=== PATIENT | female | born 1975 | race Caucasian/White ===

== ENCOUNTER 2018-08-27 16:38 | Inpatient (IN) | payer MEDICAID, MEDICARE ==
[~2018-08-27] VITALS: Ht 157.5 cm; Wt 56.8 kg
[~2018-08-27 16:38] MED LIST: AMPH30TA3 PO; TOPI50TA PO
[2018-08-27 18:01] LABS: BASOPHILS % (AUTO) 0.7 % (0.0-2.0); EOSINOPHILS % (AUTO) 1.8 % (1.0-6.0); HEMATOCRIT 39.8 % (36-46); HEMOGLOBIN 13.6 g/dL (12.0-16.0); LYMPHOCYTES # (AUTO) 1.5 K/uL (1.0-4.8); LYMPHOCYTES % (AUTO) 27.1 % (22.0-44.0); MEAN CORPUSCULAR HEMOGLOBIN 28.1 pg (26.0-34.0); MEAN CORPUSCULAR HGB CONC 34.1 G/dL (31.0-37.0); MEAN CORPUSCULAR VOLUME 82 fL (80-100); MONOCYTES # (AUTO) 0.5 K/uL (0.1-1.0); MONOCYTES % (AUTO) 8.9 % (2.0-9.0); NEUTROPHILS # (AUTO) 3.4 K/uL (1.8-7.7); NEUTROPHILS % (AUTO) 61.5 % (40.0-70.0); PLATELET COUNT (AUTO) 266 K/uL (150-450); RED BLOOD CELL COUNT(AUTO) 4.84 MIL/uL (4.00-5.20); RED CELL DISTRIBUTION WIDTH 13.8 % (11.5-14.5)
[2018-08-27 18:04] LABS: ANION GAP 8 mmol/L (8-16); CALCIUM, TOTAL 9.1 mg/dL (8.8-10.5); CARBON DIOXIDE 28 mmol/L (22-29); CHLORIDE 100 mmol/L (98-107); CREATININE 0.66 mg/dL (0.60-1.30); GLOMERULAR FILTR. RATE CALC > 60 mL/min (>60); GLUCOSE,RANDOM 96 mg/dL (70-110); POTASSIUM 4.2 mmol/L (3.5-5.1); SODIUM SERUM 136 mmol/L (136-145); UREA NITROGEN, BLOOD 8 mg/dL (7-18)
[2018-08-27 18:19] LABS: ALANINE AMINOTRANSFERASE 21 U/L (12-78); ALBUMIN 3.9 g/dL (3.4-5.0); ALKALINE PHOSPHATASE 62 U/L (46-116); ASPARTATE AMINOTRANSFERASE 20 U/L (15-37); BILIRUBIN,TOTAL 0.3 mg/dL (0.1-1.0); HCG,QUANTITATIVE < 1 mIU/mL (0-6); THYROID STIMULATING HORMONE 2.22 uIU/mL (0.36-3.74); TOTAL PROTEIN, SERUM 6.8 g/dL (6.4-8.2)
[2018-08-27 18:44] LABS: APPEARANCE,URINE CLEAR (CLEAR); BILIRUBIN,URINE NEGATIVE (NEGATIVE); GLUCOSE, URINE (UA) NEGATIVE (NEGATIVE); KETONES,URINE NEGATIVE (NEGATIVE); LEUKOCYTE ESTERASE ,URINE TRACE (NEGATIVE); NITRATE,URINE NEGATIVE (NEGATIVE); OCCULT BLOOD,URINE LARGE (NEGATIVE); PH,URINE 8.5 (5.0-8.0); PROTEIN,URINE TRACE (NEGATIVE); UROBILINOGEN,URINE 0.2 mg/dL (<=1.0)
[2018-08-27 18:54] LABS: BACTERIA,URINE Few /HPF (None Seen); RBC,URINE 51-100 /HPF (0-2); SQUAMOUS EPITHELIAL CELL,UR Moderate /LPF (None Seen)
[2018-08-27 18:56] LABS: AMPHET/METH SCREEN,URINE NEGATIVE (NEGATIVE); BARBITURATE SCREEN, URINE NEGATIVE (NEGATIVE); BENZODIAZEPINES SCREEN,URINE NEGATIVE (NEGATIVE); CANNABINOID SCREEN,URINE NEGATIVE (NEGATIVE); COCAINE SCREEN,URINE NEGATIVE (NEGATIVE); METHADONE SCREEN, URINE NEGATIVE (NEGATIVE); OPIATE SCREEN,URINE NEGATIVE (NEGATIVE); PHENCYCLIDINE SCREEN,URINE NEGATIVE (NEGATIVE)
[2018-08-27] MEDS ORDERED: ZOLPIDEM TARTRATE 10 MG TABLET PO PRN (23:45)
[2018-08-28] MEDS: LORazepam 2 MG TABLET PO PRN ×3 (00:20→18:00)
[2018-08-28 01:10] VITALS: BP 140/91
[2018-08-28 06:48] LABS: CHOL/HDL RATIO 2.5 (3.9-5.7)
[2018-08-28] MEDS ORDERED: PETROLATUM,WHITE 71 GM JELLY TP PRN (07:00)
[2018-08-28] MEDS ORDERED: ONDANSETRON HCL 4 MG TABLET PO PRN (07:00)
[2018-08-28] MEDS ORDERED: MAGNESIUM HYDROXIDE SUSPENSION 30 ML UDCUP PO PRN (07:00)
[2018-08-28] MEDS ORDERED: ACETAMINOPHEN 325 MG TABLET PO PRN (07:00)
[2018-08-28] MEDS ORDERED: GuaiFENesin/D-METHORPHAN [SUGAR-FREE] 200-20MG/10 ML SYRUP UDCUP PO PRN (07:00)
[2018-08-28] MEDS ORDERED: MAG HYDROX/AL HYDROX/SIMETH ES 30 ML SUSPENSION UDCUP PO PRN (07:00)
[2018-08-28] MEDS ORDERED: DOCUSATE SODIUM 100 MG CAPSULE PO PRN (07:00)
[2018-08-28] MEDS ORDERED: IBUPROFEN 400 MG TABLET PO PRN (07:00)
[2018-08-28] MEDS ORDERED: LOPERAMIDE HCL 2 MG CAPSULE PO PRN (07:00)
[2018-08-28] MEDS ORDERED: ALBUTEROL SULFATE HFA 90 MCG/PUFF 8 GM INHALER IH PRN (07:00)
[2018-08-28] MEDS ORDERED: CloNIDine HCL 0.1 MG TABLET PO PRN (07:00)
[2018-08-28 09:31] VITALS: BP 133/80
[2018-08-28 18:01] VITALS: BP 138/73
[2018-08-29 06:20] LABS: HEMOGLOBIN A1C 5.3 % (4.5-6.2)
[2018-08-29 07:43] LABS: CHOL/HDL RATIO 2.9 (3.9-5.7); THYROID STIMULATING HORMONE 1.39 uIU/mL (0.36-3.74)
[2018-08-29 08:05] VITALS: BP 140/95
[2018-08-29] MEDS: LORazepam 2 MG TABLET PO PRN ×3 (08:38→19:30)
[2018-08-29] MEDS: ESCITALOPRAM OXALATE 10 MG TABLET PO SCH (09:00)
[2018-08-29] MEDS: ARIPiprazole 5 MG TABLET PO SCH ×2 (12:45→14:17)
[2018-08-29] MEDS: HALOPERIDOL 5 MG TABLET PO PRN (14:17)
[2018-08-29 16:00] VITALS: BP 106/69
[2018-08-30 04:45] VITALS: BP 142/96
[2018-08-30 08:40] VITALS: BP 132/83
[2018-08-30] MEDS: ARIPiprazole 5 MG TABLET PO SCH (09:26)
[2018-08-30] MEDS: ESCITALOPRAM OXALATE 10 MG TABLET PO SCH (09:27)
[2018-08-30] MEDS: LORazepam 2 MG TABLET PO PRN ×2 (10:56→20:46)
[2018-08-30 17:04] VITALS: BP 140/89
[2018-08-31 08:05] VITALS: BP 128/79
[2018-08-31] MEDS: LORazepam 2 MG TABLET PO PRN ×2 (08:29→21:03)
[2018-08-31] MEDS: ARIPiprazole 5 MG TABLET PO SCH (08:29)
[2018-08-31] MEDS: ESCITALOPRAM OXALATE 10 MG TABLET PO SCH (08:29)
[2018-08-31 20:11] VITALS: BP 135/81
[2018-09-01 08:19] VITALS: BP 111/75
[2018-09-01] MEDS: ARIPiprazole 5 MG TABLET PO SCH (09:11)
[2018-09-01] MEDS: ESCITALOPRAM OXALATE 10 MG TABLET PO SCH (09:12)
[2018-09-01] MEDS: LORazepam 2 MG TABLET PO PRN ×3 (09:32→22:51)
[2018-09-01 20:21] VITALS: BP 117/67
[2018-09-02] MEDS: ESCITALOPRAM OXALATE 10 MG TABLET PO SCH (09:09)
[2018-09-02] MEDS: ARIPiprazole 5 MG TABLET PO SCH (09:09)
[2018-09-02] MEDS: LORazepam 2 MG TABLET PO PRN ×2 (09:14→18:18)
[2018-09-02 09:37] VITALS: BP 117/76
[2018-09-02] MEDS: HALOPERIDOL 5 MG TABLET PO PRN (10:45)
[2018-09-02 16:55] VITALS: BP 96/64
[2018-09-02 18:17] VITALS: BP 116/70
[2018-09-03] MEDS: ARIPiprazole 5 MG TABLET PO SCH (08:51)
[2018-09-03] MEDS: ESCITALOPRAM OXALATE 10 MG TABLET PO SCH (08:52)
[2018-09-03] MEDS: LORazepam 2 MG TABLET PO PRN ×3 (08:52→19:19)
[2018-09-03 09:11] VITALS: BP 123/75
[2018-09-03 17:58] VITALS: BP 134/83
[2018-09-04] MEDS: LORazepam 2 MG TABLET PO PRN ×2 (01:48→08:22)
[2018-09-04 01:50] VITALS: BP 105/75
[2018-09-04] MEDS: HALOPERIDOL 5 MG TABLET PO PRN (02:43)
[2018-09-04] MEDS: ESCITALOPRAM OXALATE 10 MG TABLET PO SCH (08:05)
[2018-09-04] MEDS: ARIPiprazole 5 MG TABLET PO SCH (08:05)
[2018-09-04 08:48] VITALS: BP 109/68
[2018-09-04] MEDS ORDERED: ESCI10TA54 PO (09:03)
[2018-09-04] MEDS ORDERED: ARIP5TAB8 PO (09:03)
== END 2018-09-04 13:30 | disposition home or self-care (01) | DRG 885 ==
LOC: EMS 16:39 → 3EX 23:30
DX: F33.2 Major depressive disorder, recurrent severe without psychotic features (principal); F50.00 Anorexia nervosa, unspecified; R45.851 Suicidal ideations; E78.5 Hyperlipidemia, unspecified; F90.9 Attention-deficit hyperactivity disorder, unspecified type; G43.909 Migraine, unspecified, not intractable, without status migrainosus; G89.4 Chronic pain syndrome; Z86.59 Personal history of other mental and behavioral disorders; R31.9 Hematuria, unspecified; F41.9 Anxiety disorder, unspecified
CPT/HCPCS: 83036; 84443; G0378; G0480

== ENCOUNTER 2020-08-22 06:56 | Inpatient (IN) | payer MEDICARE, MEDICAID ==
[~2020-08-22] VITALS: Ht 162.6 cm; Wt 56.5 kg
[~2020-08-22 06:56] MED LIST changes: -AMPH30TA3 PO; +ARIP5TAB8 PO; +ESCI10TA70 PO; -TOPI50TA PO
[2020-08-22] MEDS ORDERED: ZOLPIDEM TARTRATE 10 MG TABLET PO PRN (12:15)
[2020-08-22] MEDS ORDERED: HALOPERIDOL 5 MG TABLET PO PRN (12:15)
[2020-08-22 14:02] VITALS: BP 121/82
[2020-08-22 16:15] VITALS: BP 123/67
[2020-08-22] MEDS: LORazepam 1 MG TABLET PO PRN (17:22)
[2020-08-23 05:45] VITALS: BP 107/67
[2020-08-23] MEDS: LORazepam 1 MG TABLET PO PRN ×4 (06:22→16:53)
[2020-08-23] MEDS ORDERED: NICOTINE 14 MG/24 HOUR PATCH TD PRN (08:00)
[2020-08-23] MEDS ORDERED: ONDANSETRON HCL 4 MG TABLET PO PRN (08:00)
[2020-08-23] MEDS ORDERED: IBUPROFEN 400 MG TABLET PO PRN (08:00)
[2020-08-23] MEDS ORDERED: PETROLATUM,WHITE 28 GM JELLY TP PRN (08:00)
[2020-08-23] MEDS ORDERED: ACETAMINOPHEN 325 MG TABLET PO PRN (08:00)
[2020-08-23] MEDS ORDERED: MAG HYDROX/AL HYDROX/SIMETH ES 30 ML SUSPENSION UDCUP PO PRN (08:00)
[2020-08-23] MEDS ORDERED: LOPERAMIDE HCL 2 MG CAPSULE PO PRN (08:00)
[2020-08-23] MEDS ORDERED: CloNIDine HCL 0.1 MG TABLET PO PRN (08:00)
[2020-08-23] MEDS ORDERED: ALBUTEROL SULFATE HFA 90 MCG/PUFF 8 GM INHALER IH PRN (08:00)
[2020-08-23] MEDS ORDERED: GuaiFENesin/D-METHORPHAN [SUGAR-FREE] 200-20MG/10 ML SYRUP UDCUP PO PRN (08:00)
[2020-08-23 08:17] VITALS: BP 135/75
[2020-08-23 09:11] LABS: BASOPHILS % (AUTO) 0.6 % (0.0-2.0); EOSINOPHILS % (AUTO) 2.8 % (1.0-6.0); HEMATOCRIT 31.6 % (36-46); HEMOGLOBIN 9.9 g/dL (12.0-16.0); LYMPHOCYTES # (AUTO) 1.4 K/uL (1.0-4.8); MEAN CORPUSCULAR HEMOGLOBIN 21.1 pg (26.0-34.0); MEAN CORPUSCULAR HGB CONC 31.2 G/dL (31.0-37.0); MEAN CORPUSCULAR VOLUME 68 fL (80-100); MONOCYTES # (AUTO) 0.4 K/uL (0.1-1.0); MONOCYTES % (AUTO) 9.8 % (2.0-9.0); NEUTROPHILS # (AUTO) 1.9 K/uL (1.8-7.7); NEUTROPHILS % (AUTO) 50.8 % (40.0-70.0); PLATELET COUNT (AUTO) 264 K/uL (150-450); RED BLOOD CELL COUNT(AUTO) 4.67 MIL/uL (4.00-5.20); RED CELL DISTRIBUTION WIDTH 18.8 % (11.5-14.5)
[2020-08-23 09:22] LABS: LITHIUM < 0.20 mmol/L (0.60-1.20)
[2020-08-23 09:31] LABS: HEMOGLOBIN A1C 5.5 % (3.8-5.6)
[2020-08-23] MEDS: MAGNESIUM HYDROXIDE SUSPENSION 30 ML UDCUP PO PRN (10:23)
[2020-08-23 10:32] LABS: ALANINE AMINOTRANSFERASE 20 U/L (12-78); ALBUMIN 3.8 g/dL (3.4-5.0); ALKALINE PHOSPHATASE 63 U/L (46-116); ANION GAP 11 mmol/L (8-16); ASPARTATE AMINOTRANSFERASE 18 U/L (15-37); BILIRUBIN,TOTAL 0.2 mg/dL (0.1-1.0); CALCIUM, TOTAL 8.6 mg/dL (8.8-10.5); CARBON DIOXIDE 20 mmol/L (22-29); CHLORIDE 105 mmol/L (98-107); CHOL/HDL RATIO 2.1 (3.9-5.7); CHOLESTEROL 158 mg/dL (131-200); FREE T4 (FREE THYROXINE) 0.92 ng/dL (0.76-1.46); GLOMERULAR FILTR. RATE CALC > 60 mL/min (>60); GLUCOSE,RANDOM 83 mg/dL (70-110); HCG,QUANTITATIVE < 1 mIU/mL (0-6); HDL CHOLESTEROL 77 mg/dL (40-60); LDL CHOL (CALC.) 68 mg/dL (0-130); POTASSIUM 3.8 mmol/L (3.5-5.1); SODIUM SERUM 136 mmol/L (136-145); THYROID STIMULATING HORMONE 1.91 uIU/mL (0.36-3.74); TRIGLYCERIDES 63 mg/dL (15-150); UREA NITROGEN, BLOOD 10 mg/dL (7-18)
[2020-08-23 10:39] LABS: VALPROIC ACID < 3 mcg/mL (50-100)
[2020-08-23 13:08] VITALS: BP 125/71
[2020-08-23 16:12] VITALS: BP 139/70
[2020-08-23] MEDS: TOPIRAMATE 100 MG TABLET PO SCH (20:42)
[2020-08-24 00:16] VITALS: BP 114/70
[2020-08-24] MEDS: LORazepam 1 MG TABLET PO PRN ×4 (00:20→17:19)
[2020-08-24 06:30] VITALS: BP 120/76
[2020-08-24 08:31] LABS: APPEARANCE,URINE CLEAR (CLEAR); BILIRUBIN,URINE NEGATIVE (NEGATIVE); GLUCOSE, URINE (UA) NEGATIVE (NEGATIVE); KETONES,URINE NEGATIVE (NEGATIVE); LEUKOCYTE ESTERASE ,URINE NEGATIVE (NEGATIVE); NITRATE,URINE NEGATIVE (NEGATIVE); OCCULT BLOOD,URINE NEGATIVE (NEGATIVE); PROTEIN,URINE NEGATIVE (NEGATIVE); UROBILINOGEN,URINE 0.2 mg/dL (<=1.0)
[2020-08-24] MEDS: SENNA 187 MG TABLET PO SCH (09:00)
[2020-08-24] MEDS: BuPROPion HCL 150 MG SR TABLET PO SCH (09:00)
[2020-08-24] MEDS: ATOMOXETINE HCL 40 MG CAPSULE PO SCH (09:01)
[2020-08-24] MEDS: ESCITALOPRAM OXALATE 10 MG TABLET PO SCH (09:15)
[2020-08-24] MEDS: MAGNESIUM HYDROXIDE SUSPENSION 30 ML UDCUP PO PRN (10:49)
[2020-08-24 16:27] VITALS: BP 107/60
[2020-08-24] MEDS: TOPIRAMATE 100 MG TABLET PO SCH (20:38)
[2020-08-25 01:03] VITALS: BP 130/82
[2020-08-25 05:40] VITALS: BP 127/78
[2020-08-25] MEDS: LORazepam 1 MG TABLET PO PRN ×4 (05:47→16:41)
[2020-08-25] MEDS: DOCUSATE SODIUM 100 MG CAPSULE PO PRN ×2 (05:56→13:52)
[2020-08-25] MEDS: SENNA 187 MG TABLET PO SCH (08:34)
[2020-08-25] MEDS: ESCITALOPRAM OXALATE 10 MG TABLET PO SCH (08:34)
[2020-08-25] MEDS: ATOMOXETINE HCL 40 MG CAPSULE PO SCH (08:34)
[2020-08-25] MEDS: BuPROPion HCL 150 MG SR TABLET PO SCH (08:34)
[2020-08-25 08:37] VITALS: BP 120/80
[2020-08-25] MEDS: MAGNESIUM HYDROXIDE SUSPENSION 30 ML UDCUP PO PRN (08:56)
[2020-08-25 16:12] VITALS: BP 112/80
[2020-08-25] MEDS: TOPIRAMATE 100 MG TABLET PO SCH (20:04)
[2020-08-26 00:12] VITALS: BP 106/73
[2020-08-26 01:34] VITALS: BP 110/72
[2020-08-26] MEDS: LORazepam 1 MG TABLET PO PRN ×3 (01:37→15:56)
[2020-08-26 07:09] VITALS: BP 111/73
[2020-08-26] MEDS: DOCUSATE SODIUM 100 MG CAPSULE PO PRN (07:12)
[2020-08-26] MEDS: ESCITALOPRAM OXALATE 10 MG TABLET PO SCH (08:04)
[2020-08-26] MEDS: BuPROPion HCL 150 MG SR TABLET PO SCH (08:04)
[2020-08-26 08:05] VITALS: BP 124/84
[2020-08-26] MEDS: SENNA 187 MG TABLET PO SCH (08:05)
[2020-08-26] MEDS: ATOMOXETINE HCL 40 MG CAPSULE PO SCH (08:05)
[2020-08-26] MEDS: MAGNESIUM HYDROXIDE SUSPENSION 30 ML UDCUP PO PRN (11:04)
[2020-08-26] MEDS ORDERED: BISACODYL 5 MG EC TABLET PO PRN (13:15)
[2020-08-26 16:12] VITALS: BP 113/72
[2020-08-26] MEDS: TOPIRAMATE 100 MG TABLET PO SCH (20:29)
[2020-08-27 04:39] VITALS: BP 116/79
[2020-08-27] MEDS: LORazepam 1 MG TABLET PO PRN ×3 (07:18→17:19)
[2020-08-27 07:58] LABS: COVID AG,FIA SOURCE NASAL SWAB
[2020-08-27] MEDS: ESCITALOPRAM OXALATE 10 MG TABLET PO SCH (08:15)
[2020-08-27] MEDS: ATOMOXETINE HCL 40 MG CAPSULE PO SCH (08:15)
[2020-08-27] MEDS: SENNA 187 MG TABLET PO SCH (08:15)
[2020-08-27] MEDS: MAGNESIUM HYDROXIDE SUSPENSION 30 ML UDCUP PO PRN (08:45)
[2020-08-27] MEDS: BuPROPion HCL 150 MG SR TABLET PO SCH (09:26)
[2020-08-27 12:05] VITALS: BP 124/76
[2020-08-27 16:09] VITALS: BP 117/76
[2020-08-27] MEDS: TOPIRAMATE 100 MG TABLET PO SCH (20:57)
[2020-08-28] MEDS: LORazepam 1 MG TABLET PO PRN ×3 (05:16→15:59)
[2020-08-28 05:31] VITALS: BP 111/74
[2020-08-28 08:02] VITALS: BP 106/66
[2020-08-28] MEDS: BuPROPion HCL 150 MG SR TABLET PO SCH (08:40)
[2020-08-28] MEDS: ATOMOXETINE HCL 40 MG CAPSULE PO SCH (08:41)
[2020-08-28] MEDS: MULTIVITAMINS WITH MINERALS, THERAPEUTIC TABLET PO SCH (08:41)
[2020-08-28] MEDS: ESCITALOPRAM OXALATE 10 MG TABLET PO SCH (08:42)
[2020-08-28] MEDS: SENNA 187 MG TABLET PO SCH (08:44)
[2020-08-28] MEDS ORDERED: MULTIVITAMINS WITH IRON TABLET PO SCH (09:00)
[2020-08-28] MEDS: MAGNESIUM HYDROXIDE SUSPENSION 30 ML UDCUP PO PRN (10:14)
[2020-08-28 16:10] VITALS: BP 127/78
[2020-08-28] MEDS: TOPIRAMATE 100 MG TABLET PO SCH (20:36)
[2020-08-29 00:04] VITALS: BP 122/71
[2020-08-29] MEDS: LORazepam 1 MG TABLET PO PRN ×3 (06:51→17:21)
[2020-08-29] MEDS ORDERED: FERROUS SULFATE 325 MG EC TABLET PO SCH (07:00)
[2020-08-29] MEDS: MULTIVITAMINS WITH MINERALS, THERAPEUTIC TABLET PO SCH (08:25)
[2020-08-29] MEDS: BuPROPion HCL 150 MG SR TABLET PO SCH (08:25)
[2020-08-29] MEDS: ESCITALOPRAM OXALATE 10 MG TABLET PO SCH (08:25)
[2020-08-29] MEDS: ATOMOXETINE HCL 40 MG CAPSULE PO SCH (08:25)
[2020-08-29] MEDS: SENNA 187 MG TABLET PO SCH (08:25)
[2020-08-29 08:27] VITALS: BP 115/74
[2020-08-29] MEDS: MAGNESIUM HYDROXIDE SUSPENSION 30 ML UDCUP PO PRN (09:52)
[2020-08-29 10:10] LABS: BASOPHILS % (AUTO) 0.7 % (0.0-2.0); EOSINOPHILS % (AUTO) 2.9 % (1.0-6.0); HEMATOCRIT 29.6 % (36-46); LYMPHOCYTES # (AUTO) 1.5 K/uL (1.0-4.8); LYMPHOCYTES % (AUTO) 29.9 % (22.0-44.0); MEAN CORPUSCULAR HEMOGLOBIN 20.9 pg (26.0-34.0); MEAN CORPUSCULAR HGB CONC 30.5 G/dL (31.0-37.0); MEAN CORPUSCULAR VOLUME 69 fL (80-100); MONOCYTES # (AUTO) 0.5 K/uL (0.1-1.0); MONOCYTES % (AUTO) 9.9 % (2.0-9.0); NEUTROPHILS # (AUTO) 2.7 K/uL (1.8-7.7); NEUTROPHILS % (AUTO) 56.6 % (40.0-70.0); PLATELET COUNT (AUTO) 203 K/uL (150-450); RED BLOOD CELL COUNT(AUTO) 4.31 MIL/uL (4.00-5.20); RED CELL DISTRIBUTION WIDTH 18.6 % (11.5-14.5)
[2020-08-29] MEDS: FERROUS SULFATE 325 MG EC TABLET PO SCH ×2 (11:45→16:38)
[2020-08-29 16:11] VITALS: BP 122/76
[2020-08-29] MEDS: DOCUSATE SODIUM 100 MG CAPSULE PO SCH (16:38)
[2020-08-29] MEDS: TOPIRAMATE 100 MG TABLET PO SCH (20:37)
[2020-08-30 00:02] VITALS: BP_SYST 110; BP_SYST 113; BP_DIAS 66; BP_DIAS 75
[2020-08-30] MEDS: FERROUS SULFATE 325 MG EC TABLET PO SCH ×3 (06:37→16:32)
[2020-08-30] MEDS: DOCUSATE SODIUM 100 MG CAPSULE PO SCH ×2 (08:11→16:32)
[2020-08-30] MEDS: ATOMOXETINE HCL 40 MG CAPSULE PO SCH (08:11)
[2020-08-30] MEDS: ESCITALOPRAM OXALATE 10 MG TABLET PO SCH (08:11)
[2020-08-30] MEDS: MULTIVITAMINS WITH MINERALS, THERAPEUTIC TABLET PO SCH (08:11)
[2020-08-30] MEDS: BuPROPion HCL 150 MG SR TABLET PO SCH (08:11)
[2020-08-30] MEDS: SENNA 187 MG TABLET PO SCH (08:11)
[2020-08-30 08:17] VITALS: BP 121/72
[2020-08-30] MEDS: LORazepam 1 MG TABLET PO PRN ×2 (08:27→15:42)
[2020-08-30] MEDS: MAGNESIUM HYDROXIDE SUSPENSION 30 ML UDCUP PO PRN (12:50)
[2020-08-30 16:10] VITALS: BP 122/78
[2020-08-30] MEDS: TOPIRAMATE 100 MG TABLET PO SCH (20:28)
[2020-08-31 06:28] VITALS: BP 101/65
[2020-08-31] MEDS: FERROUS SULFATE 325 MG EC TABLET PO SCH ×3 (06:33→16:30)
[2020-08-31] MEDS: ATOMOXETINE HCL 40 MG CAPSULE PO SCH (08:01)
[2020-08-31] MEDS: DOCUSATE SODIUM 100 MG CAPSULE PO SCH ×2 (08:01→16:30)
[2020-08-31] MEDS: LORazepam 1 MG TABLET PO PRN ×3 (08:01→19:08)
[2020-08-31] MEDS: SENNA 187 MG TABLET PO SCH (08:01)
[2020-08-31] MEDS: ESCITALOPRAM OXALATE 10 MG TABLET PO SCH (08:02)
[2020-08-31] MEDS: MULTIVITAMINS WITH MINERALS, THERAPEUTIC TABLET PO SCH (08:02)
[2020-08-31 08:06] VITALS: BP 133/81
[2020-08-31] MEDS: BuPROPion HCL 150 MG SR TABLET PO SCH (08:34)
[2020-08-31] MEDS: MAGNESIUM HYDROXIDE SUSPENSION 30 ML UDCUP PO PRN (11:58)
[2020-08-31 16:07] VITALS: BP 115/77
[2020-08-31] MEDS: TOPIRAMATE 100 MG TABLET PO SCH (20:38)
[2020-09-01] MEDS: FERROUS SULFATE 325 MG EC TABLET PO SCH ×3 (06:32→16:49)
[2020-09-01 06:47] VITALS: BP 126/84
[2020-09-01] MEDS: DOCUSATE SODIUM 100 MG CAPSULE PO SCH ×2 (08:05→16:49)
[2020-09-01] MEDS: BuPROPion HCL 150 MG SR TABLET PO SCH (08:05)
[2020-09-01] MEDS: SENNA 187 MG TABLET PO SCH (08:05)
[2020-09-01] MEDS: MULTIVITAMINS WITH MINERALS, THERAPEUTIC TABLET PO SCH (08:05)
[2020-09-01] MEDS: ATOMOXETINE HCL 40 MG CAPSULE PO SCH (08:05)
[2020-09-01] MEDS: ESCITALOPRAM OXALATE 10 MG TABLET PO SCH (08:05)
[2020-09-01] MEDS: LORazepam 1 MG TABLET PO PRN ×2 (08:06→14:14)
[2020-09-01 08:13] VITALS: BP 110/71
[2020-09-01] MEDS: MAGNESIUM HYDROXIDE SUSPENSION 30 ML UDCUP PO PRN (11:59)
[2020-09-01 14:14] VITALS: BP 112/71
[2020-09-01 16:09] VITALS: BP 109/56
[2020-09-01] MEDS: TOPIRAMATE 100 MG TABLET PO SCH (21:23)
[2020-09-02 04:17] VITALS: BP 106/58
[2020-09-02] MEDS: FERROUS SULFATE 325 MG EC TABLET PO SCH ×3 (06:43→16:27)
[2020-09-02 08:12] VITALS: BP 111/74
[2020-09-02] MEDS: DOCUSATE SODIUM 100 MG CAPSULE PO SCH ×2 (08:20→16:27)
[2020-09-02] MEDS: ESCITALOPRAM OXALATE 10 MG TABLET PO SCH (08:20)
[2020-09-02] MEDS: MULTIVITAMINS WITH MINERALS, THERAPEUTIC TABLET PO SCH (08:20)
[2020-09-02] MEDS: LORazepam 1 MG TABLET PO PRN ×2 (08:21→15:46)
[2020-09-02] MEDS: SENNA 187 MG TABLET PO SCH (08:21)
[2020-09-02] MEDS: ATOMOXETINE HCL 40 MG CAPSULE PO SCH (08:21)
[2020-09-02] MEDS: BuPROPion HCL 150 MG SR TABLET PO SCH (09:08)
[2020-09-02] MEDS: MAGNESIUM HYDROXIDE SUSPENSION 30 ML UDCUP PO PRN (14:15)
[2020-09-02 16:06] VITALS: BP 105/67
[2020-09-02] MEDS: TOPIRAMATE 100 MG TABLET PO SCH (20:29)
[2020-09-03 06:27] VITALS: BP 108/61
[2020-09-03] MEDS: FERROUS SULFATE 325 MG EC TABLET PO SCH ×3 (06:35→16:33)
[2020-09-03] MEDS: DOCUSATE SODIUM 100 MG CAPSULE PO SCH ×2 (08:00→16:32)
[2020-09-03] MEDS: ESCITALOPRAM OXALATE 10 MG TABLET PO SCH (08:01)
[2020-09-03] MEDS: MULTIVITAMINS WITH MINERALS, THERAPEUTIC TABLET PO SCH (08:01)
[2020-09-03] MEDS: ATOMOXETINE HCL 40 MG CAPSULE PO SCH (08:01)
[2020-09-03] MEDS: SENNA 187 MG TABLET PO SCH (08:01)
[2020-09-03] MEDS: BuPROPion HCL 150 MG SR TABLET PO SCH (08:01)
[2020-09-03] MEDS: LORazepam 1 MG TABLET PO PRN ×2 (08:08→14:08)
[2020-09-03 08:28] LABS: COVID AG,FIA SOURCE NASAL SWAB
[2020-09-03 08:33] VITALS: BP 103/69
[2020-09-03] MEDS: MAGNESIUM HYDROXIDE SUSPENSION 30 ML UDCUP PO PRN (11:54)
[2020-09-03 16:35] VITALS: BP 115/68
[2020-09-03] MEDS: TOPIRAMATE 100 MG TABLET PO SCH (20:30)
[2020-09-04] MEDS: FERROUS SULFATE 325 MG EC TABLET PO SCH ×3 (06:36→16:15)
[2020-09-04 06:41] VITALS: BP 115/67
[2020-09-04] MEDS: ESCITALOPRAM OXALATE 10 MG TABLET PO SCH (08:15)
[2020-09-04] MEDS: BuPROPion HCL 150 MG SR TABLET PO SCH (08:15)
[2020-09-04] MEDS: MULTIVITAMINS WITH MINERALS, THERAPEUTIC TABLET PO SCH (08:15)
[2020-09-04] MEDS: DOCUSATE SODIUM 100 MG CAPSULE PO SCH ×2 (08:15→16:15)
[2020-09-04] MEDS: ATOMOXETINE HCL 40 MG CAPSULE PO SCH (08:17)
[2020-09-04] MEDS: SENNA 187 MG TABLET PO SCH (08:17)
[2020-09-04 08:29] VITALS: BP 140/77
[2020-09-04] MEDS: LORazepam 1 MG TABLET PO PRN (12:49)
[2020-09-04 16:08] VITALS: BP 110/72
[2020-09-04] MEDS: MAGNESIUM HYDROXIDE SUSPENSION 30 ML UDCUP PO PRN (16:15)
[2020-09-04] MEDS: TOPIRAMATE 100 MG TABLET PO SCH (20:02)
[2020-09-05 00:41] LABS: COVID AG,FIA SOURCE NASOPHARYNGEAL
[2020-09-05 05:28] VITALS: BP 118/66
[2020-09-05] MEDS: FERROUS SULFATE 325 MG EC TABLET PO SCH ×3 (06:29→16:38)
[2020-09-05] MEDS: DOCUSATE SODIUM 100 MG CAPSULE PO SCH ×2 (08:15→16:38)
[2020-09-05] MEDS: ESCITALOPRAM OXALATE 10 MG TABLET PO SCH (08:15)
[2020-09-05] MEDS: MULTIVITAMINS WITH MINERALS, THERAPEUTIC TABLET PO SCH (08:15)
[2020-09-05] MEDS: BuPROPion HCL 150 MG SR TABLET PO SCH (08:16)
[2020-09-05] MEDS: ATOMOXETINE HCL 40 MG CAPSULE PO SCH (08:16)
[2020-09-05] MEDS: SENNA 187 MG TABLET PO SCH (08:16)
[2020-09-05 08:27] VITALS: BP 107/69
[2020-09-05] MEDS: MAGNESIUM HYDROXIDE SUSPENSION 30 ML UDCUP PO PRN (10:45)
[2020-09-05 16:02] VITALS: BP 116/77
[2020-09-05] MEDS: LORazepam 1 MG TABLET PO PRN (16:39)
[2020-09-05] MEDS: TOPIRAMATE 100 MG TABLET PO SCH (20:15)
[2020-09-06 00:22] VITALS: BP 121/86
[2020-09-06] MEDS: FERROUS SULFATE 325 MG EC TABLET PO SCH ×3 (06:34→16:37)
[2020-09-06 08:34] VITALS: BP 122/77
[2020-09-06] MEDS: BuPROPion HCL 150 MG SR TABLET PO SCH (08:58)
[2020-09-06] MEDS: ATOMOXETINE HCL 40 MG CAPSULE PO SCH (08:58)
[2020-09-06] MEDS: MULTIVITAMINS WITH MINERALS, THERAPEUTIC TABLET PO SCH (08:58)
[2020-09-06] MEDS: ESCITALOPRAM OXALATE 10 MG TABLET PO SCH (08:58)
[2020-09-06] MEDS: SENNA 187 MG TABLET PO SCH (09:00)
[2020-09-06] MEDS: DOCUSATE SODIUM 100 MG CAPSULE PO SCH ×2 (09:00→16:37)
[2020-09-06 16:08] VITALS: BP 121/81
[2020-09-06] MEDS: TOPIRAMATE 100 MG TABLET PO SCH (20:34)
[2020-09-07 00:10] VITALS: BP 118/71
[2020-09-07] MEDS: FERROUS SULFATE 325 MG EC TABLET PO SCH ×3 (06:24→16:32)
[2020-09-07 08:14] VITALS: BP 100/69
[2020-09-07] MEDS: DOCUSATE SODIUM 100 MG CAPSULE PO SCH ×2 (08:17→16:32)
[2020-09-07] MEDS: SENNA 187 MG TABLET PO SCH (08:17)
[2020-09-07] MEDS: MULTIVITAMINS WITH MINERALS, THERAPEUTIC TABLET PO SCH (08:17)
[2020-09-07] MEDS: ATOMOXETINE HCL 40 MG CAPSULE PO SCH (08:18)
[2020-09-07] MEDS: BuPROPion HCL 150 MG SR TABLET PO SCH (08:18)
[2020-09-07] MEDS: ESCITALOPRAM OXALATE 10 MG TABLET PO SCH (08:18)
[2020-09-07] MEDS ORDERED: ESCI-8 PO (11:29)
[2020-09-07] MEDS ORDERED: BUPR75 PO (11:29)
[2020-09-07] MEDS ORDERED: TOPI100T37 PO (11:29)
[2020-09-07] MEDS ORDERED: ATOM40CA9 PO (11:29)
[2020-09-07 16:17] VITALS: BP 132/83
[2020-09-07] MEDS: TOPIRAMATE 100 MG TABLET PO SCH (20:29)
[2020-09-08 06:27] VITALS: BP 100/66
[2020-09-08] MEDS: FERROUS SULFATE 325 MG EC TABLET PO SCH ×2 (06:32→12:12)
[2020-09-08] MEDS: DOCUSATE SODIUM 100 MG CAPSULE PO SCH (08:15)
[2020-09-08] MEDS: ESCITALOPRAM OXALATE 10 MG TABLET PO SCH (08:15)
[2020-09-08] MEDS: MULTIVITAMINS WITH MINERALS, THERAPEUTIC TABLET PO SCH (08:15)
[2020-09-08] MEDS: SENNA 187 MG TABLET PO SCH (08:15)
[2020-09-08] MEDS: ATOMOXETINE HCL 40 MG CAPSULE PO SCH (08:15)
[2020-09-08 08:22] VITALS: BP 103/68
[2020-09-08] MEDS: BuPROPion HCL 150 MG SR TABLET PO SCH (08:33)
[2020-09-08] MEDS ORDERED: FERR-89 PO (09:28)
[2020-09-08] MEDS ORDERED: MULT-1203 PO (09:28)
[2020-09-08] MEDS ORDERED: SENN-277 PO ×2 (09:28→09:38)
[2020-09-08] MEDS ORDERED: DOCU-275 PO ×3 (09:28→09:42)
[2020-09-08] MEDS ORDERED: TOPI100T37 PO (09:32)
[2020-09-08] MEDS ORDERED: SENN8.6T90 PO (09:45)
== END 2020-09-08 13:00 | disposition home or self-care (01) | DRG 885 ==
LOC: B2X 13:13
PROVIDERS: ADMIT Psychiatry & Neurology Child & Adolescent Psychiatry; ATTEND Psychiatry & Neurology Child & Adolescent Psychiatry
DX: F33.2 Major depressive disorder, recurrent severe without psychotic features (principal); R45.851 Suicidal ideations; M79.7 Fibromyalgia; M19.90 Unspecified osteoarthritis, unspecified site; D64.9 Anemia, unspecified; D72.819 Decreased white blood cell count, unspecified; Z59.0 Homelessness; K59.00 Constipation, unspecified; F41.9 Anxiety disorder, unspecified; Z20.822 Contact with and (suspected) exposure to COVID-19
CPT/HCPCS: 83036; 84439; 84443; 87426

== ENCOUNTER 2020-09-07 10:08 | Emergency (ER) | payer MEDICARE, OTHER ==
[~2020-09-07] VITALS: Ht 157.5 cm; Wt 63.6 kg
[2020-09-07] MEDS ORDERED: SODIUM CHLORIDE 0.9% 1,000 ML IV ONE (10:30)
[2020-09-07] MEDS ORDERED: MAG HYDROX/AL HYDROX/SIMETH 30 ML SUSP UDCUP PO ONE (10:30)
[2020-09-07] MEDS ORDERED: FAMOTIDINE 10 MG/ML 2 ML VIAL IVP ONE (10:30)
[2020-09-07] MEDS ORDERED: ONDANSETRON HCL 4 MG/2 ML VIAL IVP ONE (10:30)
[2020-09-07 11:28] LABS: COVID AG,FIA SOURCE NASOPHARYNGEAL
[2020-09-07] MEDS ORDERED: ESCI-8 PO (11:29)
[2020-09-07] MEDS ORDERED: BUPR75 PO (11:29)
[2020-09-07] MEDS ORDERED: ATOM40CA9 PO (11:29)
[2020-09-07] MEDS ORDERED: TOPI100T37 PO (11:29)
[2020-09-07 11:30] LABS: BASOPHILS % (AUTO) 0.3 % (0.0-2.0); EOSINOPHILS % (AUTO) 2.8 % (1.0-6.0); HEMATOCRIT 36.7 % (36-46); HEMOGLOBIN 11.3 g/dL (12.0-16.0); LYMPHOCYTES # (AUTO) 1.2 K/uL (1.0-4.8); LYMPHOCYTES % (AUTO) 20.6 % (22.0-44.0); MEAN CORPUSCULAR HEMOGLOBIN 22.3 pg (26.0-34.0); MEAN CORPUSCULAR HGB CONC 30.7 G/dL (31.0-37.0); MEAN CORPUSCULAR VOLUME 72 fL (80-100); MONOCYTES # (AUTO) 0.4 K/uL (0.1-1.0); MONOCYTES % (AUTO) 7.2 % (2.0-9.0); NEUTROPHILS # (AUTO) 3.9 K/uL (1.8-7.7); NEUTROPHILS % (AUTO) 69.1 % (40.0-70.0); PLATELET COUNT (AUTO) 191 K/uL (150-450); RED BLOOD CELL COUNT(AUTO) 5.06 MIL/uL (4.00-5.20); RED CELL DISTRIBUTION WIDTH 18.7 % (11.5-14.5)
[2020-09-07 11:35] LABS: BILIRUBIN,URINE NEGATIVE (NEGATIVE); GLUCOSE, URINE (UA) NEGATIVE (NEGATIVE); KETONES,URINE NEGATIVE (NEGATIVE); LEUKOCYTE ESTERASE ,URINE NEGATIVE (NEGATIVE); NITRATE,URINE NEGATIVE (NEGATIVE); OCCULT BLOOD,URINE NEGATIVE (NEGATIVE); PH,URINE 5.5 (5.0-8.0); PROTEIN,URINE NEGATIVE (NEGATIVE); UROBILINOGEN,URINE 0.2 mg/dL (<=1.0)
[2020-09-07 11:42] LABS: ANION GAP 12 mmol/L (8-16); CALCIUM, TOTAL 8.4 mg/dL (8.8-10.5); CARBON DIOXIDE 18 mmol/L (22-29); CHLORIDE 106 mmol/L (98-107); CREATININE 0.87 mg/dL (0.60-1.30); GLOMERULAR FILTR. RATE CALC > 60 mL/min (>60); GLUCOSE,RANDOM 82 mg/dL (70-110); SODIUM SERUM 136 mmol/L (136-145); UREA NITROGEN, BLOOD 15 mg/dL (7-18)
[2020-09-07 11:46] LABS: APPEARANCE,URINE CLEAR (CLEAR)
[2020-09-07 12:04] LABS: ALANINE AMINOTRANSFERASE 20 U/L (12-78); ALBUMIN 4.2 g/dL (3.4-5.0); ALKALINE PHOSPHATASE 54 U/L (46-116); ASPARTATE AMINOTRANSFERASE 14 U/L (15-37); BILIRUBIN,TOTAL 0.4 mg/dL (0.1-1.0); HCG,QUANTITATIVE < 1 mIU/mL (0-6); LIPASE 117 U/L (73-393); TOTAL PROTEIN, SERUM 7.5 g/dL (6.4-8.2)
[2020-09-07 13:00] VITALS: BP 113/76
[2020-09-08] MEDS ORDERED: FERR-89 PO (09:28)
[2020-09-08] MEDS ORDERED: DOCU-275 PO ×3 (09:28→09:42)
[2020-09-08] MEDS ORDERED: MULT-1203 PO (09:28)
[2020-09-08] MEDS ORDERED: SENN-277 PO ×2 (09:28→09:38)
[2020-09-08] MEDS ORDERED: TOPI100T37 PO (09:32)
[2020-09-08] MEDS ORDERED: SENN8.6T90 PO (09:45)
== END 2020-09-07 15:16 | disposition psychiatric hospital, planned readmission (93) ==
LOC: EMS 10:16
DX: K52.9 Noninfective gastroenteritis and colitis, unspecified (principal); F32.9 Major depressive disorder, single episode, unspecified; F41.9 Anxiety disorder, unspecified; G40.909 Epilepsy, unspecified, not intractable, without status epilepticus; Z20.822 Contact with and (suspected) exposure to COVID-19
CPT/HCPCS: 36415; 80053; 81003; 83690; 84702; 85025; 87426; 96361; 96374; 96375; 99285; J2405; J3490; J7030

== ENCOUNTER 2020-09-08 17:54 | Inpatient (IN) | payer MEDICARE, MEDICAID ==
[~2020-09-08] VITALS: Ht 162.6 cm; Wt 61.7 kg
[~2020-09-08 17:54] MED LIST changes: +ATOM40CA9 PO; +BUPR75 PO; +DOCU-275 PO; +ESCI-8 PO; +FERR-89 PO; +MULT-1203 PO; +SENN-277 PO; +SENN8.6T90 PO; +TOPI100T37 PO
[2020-09-08 20:07] LABS: ANION GAP 9 mmol/L (8-16); CALCIUM, TOTAL 9.4 mg/dL (8.8-10.5); CARBON DIOXIDE 21 mmol/L (22-29); CHLORIDE 104 mmol/L (98-107); CREATININE 0.84 mg/dL (0.60-1.30); GLOMERULAR FILTR. RATE CALC > 60 mL/min (>60); GLUCOSE,RANDOM 73 mg/dL (70-110); POTASSIUM 3.6 mmol/L (3.5-5.1); SODIUM SERUM 134 mmol/L (136-145); UREA NITROGEN, BLOOD 13 mg/dL (7-18)
[2020-09-08 20:18] LABS: ALANINE AMINOTRANSFERASE 24 U/L (12-78); ALBUMIN 4.3 g/dL (3.4-5.0); ALKALINE PHOSPHATASE 61 U/L (46-116); ASPARTATE AMINOTRANSFERASE 15 U/L (15-37); BILIRUBIN,TOTAL 0.2 mg/dL (0.1-1.0); HCG,QUANTITATIVE < 1 mIU/mL (0-6); TOTAL PROTEIN, SERUM 7.7 g/dL (6.4-8.2)
[2020-09-08 21:05] LABS: COVID AG,FIA SOURCE NASOPHARYNGEAL
[2020-09-08] MEDS ORDERED: OLANZapine 5 MG RAPDIS TABLET PO PRN (21:15)
[2020-09-08] MEDS ORDERED: LORazepam 2 MG TABLET PO PRN ×2 (21:15)
[2020-09-08 21:31] LABS: BASOPHILS % (AUTO) 0.5 % (0.0-2.0); EOSINOPHILS % (AUTO) 3.9 % (1.0-6.0); HEMOGLOBIN 10.9 g/dL (12.0-16.0); LYMPHOCYTES # (AUTO) 1.6 K/uL (1.0-4.8); LYMPHOCYTES % (AUTO) 30.9 % (22.0-44.0); MEAN CORPUSCULAR HEMOGLOBIN 22.5 pg (26.0-34.0); MEAN CORPUSCULAR HGB CONC 31.3 G/dL (31.0-37.0); MEAN CORPUSCULAR VOLUME 72 fL (80-100); MONOCYTES # (AUTO) 0.5 K/uL (0.1-1.0); MONOCYTES % (AUTO) 9.8 % (2.0-9.0); NEUTROPHILS # (AUTO) 2.8 K/uL (1.8-7.7); NEUTROPHILS % (AUTO) 54.9 % (40.0-70.0); PLATELET COUNT (AUTO) 214 K/uL (150-450); RED BLOOD CELL COUNT(AUTO) 4.86 MIL/uL (4.00-5.20); RED CELL DISTRIBUTION WIDTH 18.7 % (11.5-14.5)
[2020-09-08 23:37] LABS: AMPHET/METH SCREEN,URINE NEGATIVE (NEGATIVE); BARBITURATE SCREEN, URINE NEGATIVE (NEGATIVE); BENZODIAZEPINES SCREEN,URINE NEGATIVE (NEGATIVE); CANNABINOID SCREEN,URINE NEGATIVE (NEGATIVE); COCAINE SCREEN,URINE NEGATIVE (NEGATIVE); METHADONE SCREEN, URINE NEGATIVE (NEGATIVE); OPIATE SCREEN,URINE NEGATIVE (NEGATIVE)
[2020-09-08 23:50] LABS: PHENCYCLIDINE SCREEN,URINE NEGATIVE (NEGATIVE)
[2020-09-09] MEDS ORDERED: OLANZapine 5 MG RAPDIS TABLET PO PRN (00:30)
[2020-09-09] MEDS ORDERED: LORazepam 2 MG TABLET PO PRN (00:30)
[2020-09-09 00:32] VITALS: BP 115/78
[2020-09-09 04:03] LABS: APPEARANCE,URINE CLEAR (CLEAR); BILIRUBIN,URINE NEGATIVE (NEGATIVE); GLUCOSE, URINE (UA) NEGATIVE (NEGATIVE); KETONES,URINE NEGATIVE (NEGATIVE); LEUKOCYTE ESTERASE ,URINE NEGATIVE (NEGATIVE); NITRATE,URINE NEGATIVE (NEGATIVE); OCCULT BLOOD,URINE NEGATIVE (NEGATIVE); PH,URINE 5.5 (5.0-8.0); PROTEIN,URINE NEGATIVE (NEGATIVE); UROBILINOGEN,URINE 0.2 mg/dL (<=1.0)
[2020-09-09] MEDS ORDERED: PETROLATUM,WHITE 28 GM JELLY TP PRN (07:15)
[2020-09-09] MEDS ORDERED: IBUPROFEN 400 MG TABLET PO PRN (07:15)
[2020-09-09] MEDS ORDERED: ACETAMINOPHEN 325 MG TABLET PO PRN (07:15)
[2020-09-09] MEDS ORDERED: GuaiFENesin/D-METHORPHAN [SUGAR-FREE] 200-20MG/10 ML SYRUP UDCUP PO PRN (07:15)
[2020-09-09] MEDS ORDERED: MAG HYDROX/AL HYDROX/SIMETH ES 30 ML SUSPENSION UDCUP PO PRN (07:15)
[2020-09-09] MEDS ORDERED: CloNIDine HCL 0.1 MG TABLET PO PRN (07:15)
[2020-09-09] MEDS ORDERED: ALBUTEROL SULFATE HFA 90 MCG/PUFF 8 GM INHALER IH PRN (07:15)
[2020-09-09] MEDS ORDERED: DOCUSATE SODIUM 100 MG CAPSULE PO PRN (07:15)
[2020-09-09] MEDS ORDERED: LOPERAMIDE HCL 2 MG CAPSULE PO PRN (07:15)
[2020-09-09] MEDS ORDERED: ONDANSETRON HCL 4 MG TABLET PO PRN (07:15)
[2020-09-09] MEDS ORDERED: NICOTINE 14 MG/24 HOUR PATCH TD PRN (07:15)
[2020-09-09] MEDS: FERROUS SULFATE 325 MG EC TABLET PO SCH ×3 (07:48→17:35)
[2020-09-09 10:18] VITALS: BP 109/67
[2020-09-09] MEDS: FLUoxetine HCL 10 MG CAPSULE PO SCH (12:35)
[2020-09-09] MEDS: ATOMOXETINE HCL 40 MG CAPSULE PO SCH (12:45)
[2020-09-09] MEDS: MAGNESIUM HYDROXIDE SUSPENSION 30 ML UDCUP PO PRN (13:19)
[2020-09-09 16:20] VITALS: BP 108/71
[2020-09-09] MEDS: TOPIRAMATE 100 MG TABLET PO SCH (20:15)
[2020-09-10] MEDS: FERROUS SULFATE 325 MG EC TABLET PO SCH ×3 (06:58→17:23)
[2020-09-10 08:00] VITALS: BP 122/75
[2020-09-10 08:35] LABS: CHOL/HDL RATIO 3.4 (3.9-5.7)
[2020-09-10] MEDS: BuPROPion HCL XL 150 MG ER TABLET PO SCH (09:00)
[2020-09-10] MEDS: FLUoxetine HCL 10 MG CAPSULE PO SCH (09:00)
[2020-09-10] MEDS: ATOMOXETINE HCL 40 MG CAPSULE PO SCH (09:01)
[2020-09-10] MEDS: DOCUSATE SODIUM 100 MG CAPSULE PO PRN ×2 (09:26→17:27)
[2020-09-10] MEDS: MAGNESIUM HYDROXIDE SUSPENSION 30 ML UDCUP PO PRN (09:26)
[2020-09-10 16:15] VITALS: BP 118/76
[2020-09-10] MEDS: TOPIRAMATE 100 MG TABLET PO SCH (20:18)
[2020-09-11] MEDS: FERROUS SULFATE 325 MG EC TABLET PO SCH ×3 (06:34→17:05)
[2020-09-11 08:00] VITALS: BP 121/70
[2020-09-11] MEDS: ATOMOXETINE HCL 40 MG CAPSULE PO SCH (08:30)
[2020-09-11] MEDS: BuPROPion HCL XL 150 MG ER TABLET PO SCH (08:30)
[2020-09-11] MEDS: FLUoxetine HCL 10 MG CAPSULE PO SCH (08:31)
[2020-09-11] MEDS: MAGNESIUM HYDROXIDE SUSPENSION 30 ML UDCUP PO PRN ×2 (08:34→19:00)
[2020-09-11] MEDS: DOCUSATE SODIUM 100 MG CAPSULE PO PRN ×2 (12:37→17:14)
[2020-09-11 17:06] VITALS: BP 106/69
[2020-09-11] MEDS: TOPIRAMATE 100 MG TABLET PO SCH (20:15)
[2020-09-12] MEDS: FERROUS SULFATE 325 MG EC TABLET PO SCH ×3 (06:41→16:18)
[2020-09-12] MEDS: FLUoxetine HCL 10 MG CAPSULE PO SCH (08:33)
[2020-09-12] MEDS: BuPROPion HCL XL 150 MG ER TABLET PO SCH (08:33)
[2020-09-12] MEDS: ATOMOXETINE HCL 40 MG CAPSULE PO SCH (08:33)
[2020-09-12] MEDS: MAGNESIUM HYDROXIDE SUSPENSION 30 ML UDCUP PO PRN ×2 (08:38→21:31)
[2020-09-12 08:39] VITALS: BP 115/73
[2020-09-12] MEDS ORDERED: MELATONIN 5 MG TABLET PO PRN (10:30)
[2020-09-12] MEDS: DOCUSATE SODIUM 100 MG CAPSULE PO PRN ×2 (11:53→16:19)
[2020-09-12 16:37] VITALS: BP 114/70
[2020-09-12] MEDS: TOPIRAMATE 100 MG TABLET PO SCH (20:22)
[2020-09-13] MEDS: FERROUS SULFATE 325 MG EC TABLET PO SCH ×2 (07:30→12:03)
[2020-09-13] MEDS: BuPROPion HCL XL 150 MG ER TABLET PO SCH (08:24)
[2020-09-13] MEDS: ATOMOXETINE HCL 40 MG CAPSULE PO SCH (08:24)
[2020-09-13] MEDS: FLUoxetine HCL 10 MG CAPSULE PO SCH (08:24)
[2020-09-13 08:25] VITALS: BP 124/75
[2020-09-13] MEDS: MAGNESIUM HYDROXIDE SUSPENSION 30 ML UDCUP PO PRN (10:12)
[2020-09-13] MEDS ORDERED: BUPR-93 PO (14:09)
[2020-09-13] MEDS ORDERED: PROZ10 PO (14:10)
== END 2020-09-13 16:00 | disposition home or self-care (01) | DRG 885 ==
LOC: EMS 17:54 → 3EX 09-09 00:19
PROVIDERS: ADMIT Psychiatry & Neurology Child & Adolescent Psychiatry; ATTEND Psychiatry & Neurology Child & Adolescent Psychiatry
DX: F33.2 Major depressive disorder, recurrent severe without psychotic features (principal); E87.1 Hypo-osmolality and hyponatremia; R45.851 Suicidal ideations; F41.0 Panic disorder [episodic paroxysmal anxiety]; F41.1 Generalized anxiety disorder; Z20.822 Contact with and (suspected) exposure to COVID-19; F90.9 Attention-deficit hyperactivity disorder, unspecified type; G43.909 Migraine, unspecified, not intractable, without status migrainosus; M19.90 Unspecified osteoarthritis, unspecified site; M79.7 Fibromyalgia; D64.9 Anemia, unspecified; K59.00 Constipation, unspecified; G47.00 Insomnia, unspecified; Z79.899 Other long term (current) drug therapy; Z88.8 Allergy status to other drugs, medicaments and biological substances
CPT/HCPCS: 87081; 87426; 99285; A9575; G0378; G0480